=== PATIENT | male | born 1940 | race Caucasian/White ===

== ENCOUNTER 2018-02-27 00:20 | Inpatient (IN) ==
--- NOTE | 2018-02-27 03:28 | Internal Med History&Physical ---
Date of Encounter: 02/27/18 Time of Encounter: 03:26 Internal Medicine - H&P: HPI Admitted From: Hospital to Hospital Transfer History of present illness: Mr. Jerome is a 77 year old male All Systems PM: A 10-system review of systems was performed and is negative for pertinent findings except as documented above in the HPI.
[2018-02-27] MEDS ORDERED: Albuterol 2.5 MG/3 ML NEBULIZER IH PRN (03:46)
[2018-02-27] MEDS ORDERED: Naloxone 0.4 MG/ML INJ IVP PRN (03:46)
[2018-02-27] MEDS ORDERED: Acetaminophen 325 MG TABLET PO PRN (03:46)
[2018-02-27] MEDS ORDERED: Vancomycin (wt based) 1,000 MG VIAL IVPB SCH (04:00)
[2018-02-27] MEDS: D5% in 0.45% NACL 1,000 ML IVC SCH ×2 (04:25→14:33)
--- NOTE | 2018-02-27 04:28 | Internal Med History&Physical ---
Date of Encounter: 02/27/18 Time of Encounter: 03:30 Internal Medicine - H&P: HPI Chief complaint: SOB; fevers; chills Admitted From: Hospital to Hospital Transfer Plans for Post Hospital Care: Home History of present illness: Mr. Jerome is a 77 year old male who presents in transfer from [facility] emergency department. He presented there earlier this evening with complaints of profound dyspnea, cough, fevers, chills, and night sweats. He was profoundly hypoxemic and in severe posterior distress there at the ER. He was placed on BiPAP and high flow oxygen. A transfer request was made to our hospital for ongoing care and management. Given his critical state , he was transferred directly to our ICU were he presented and I saw him shortly upon arrival. Upon my assessment of the patient, he is on BiPAP and having some signs of respiratory distress during assessment. He states he feels much better on the BiPAP and that he was struggling to breathe prior to BiPAP placement. He wears anywhere between 5-10 L O2 nasal cannula at home chronically. He suffers from severe COPD and recently saw Dr. Morataya in consultation in the office. He states that over the last couple days he's had significant cough, wheeze, shortness of breath, subjective fevers, chills, and night sweats. He states he was drenching himself in sweat after breaking his fever. He denies any vomiting or diarrhea. Appetite has been diminished. He has had significantly increased work of breathing last 24 hours. I discussed CODE STATUS with patient. Other than stating "I do not want to be a vegetable", he wants to be full code. He requests chest compressions or defibrillation and intubation if necessary. I informed him that we will try to avoid intubation for fear that that if he requires intubation, I suspect he will not be able to be successfully extubated. We will continue with aggressive treatment measures, including BiPAP, in hopes of avoiding intubation. Patient voiced understanding and agreement with the plan. Past Med Surg Social Fam HX - Past Medical History Attestation: Yes The following information was validated with the patient. Source: patient, old records reviewed Medical history: COPD, hypertension Additional medical history: BPH, prostate cancer Psychiatric history: no psych history - Past Surgical History Surgical History: cholecystectomy Additional surgical history: neck/back surgery. Nerve in head surgery - Social History Smoking Status: Former smoker Drug use: none Current living situation: Home - Independent Activity Level: Independent ambulation Recent Out of Country Travel Within the Last 8 Weeks: No - Family History Mother History Unknown: Yes Living Status: Father History Unknown: Yes Living Status: Internal Medicine - H&P: Meds 3 Allergy/AdvReac Type Severity Reaction Status Date / Time No Known Allergies Allergy Verified 02/27/18 03:51 - Constitutional Constitutional: chills, fever(s), night sweats, weakness - EENT Eyes: no blurry vision, no change in vision Ears: no ear pain, no tinnitus Nose, mouth and throat: no nasal congestion, no sinus pressure, no sore throat - Cardiovascular Cardiovascular ROS IM: diaphoresis, dyspnea, dyspnea on exertion, no chest pain , no syncope - Respiratory Respiratory: cough, dyspnea, dyspnea on exertion, wheezing, chest congestion, change in phlegm color, no hemoptysis, no excessive phlegm production, no pain with cough - Gastrointestinal Gastrointestinal: no abdominal pain, no diarrhea, no hematemesis, no melena, no nausea, no vomiting - Genitourinary Genitourinary ROS male: no dysuria, no flank pain, no hematuria - Musculoskeletal Musculoskeletal ROS IM: no arthralgias, no back pain - Integumentary Integumentary IM: no rash, no jaundice - Neurological Neurological ROS: weakness, no dizziness, no focal weakness, no frequent falls, no headache(s) - Psychiatric Psychiatric: no anxiety, no depression - Endocrine Endocrine IM: no polydipsia, no polyuria - Allergic/Immunologic Allergic/Immunologic: wheezing, no GI upset with certain foods - Constitutional Vitals: Temp Pulse Resp BP Pulse Ox 99.7 F H 101 24 132/96 92 02/27/18 03:26 02/27/18 04:00 02/27/18 04:00 02/27/18 04:00 02/27/18 04:00 General appearance: Present: cooperative, A&O X 3, pleasant, severe distress ( respiratory), answers questions appropriately - Head Head exam: Present: atraumatic, normal inspection - Eye Eye exam: Present: EOMI, normal appearance, PERRL. Absent: scleral icterus Pupils: Present: normal accommodation - ENT ENT exam: Present: mucous membranes dry Additional comments: on BiPap - Neck Neck exam general surgery: Present: full ROM, supple. Absent: lymphadenopathy, tenderness, nuchal rigidity, thyromegaly - Respiratory Respiratory exam: Present: accessory muscle use, decreased breath sounds, prolonged expiratory phase, respiratory distress, rhonchi, wheezes. Absent: chest wall tenderness, rales Additional comments: very distant breath sounds with markedly prolonged expiratory phase - Cardiovascular Cardiovascular exam: Present: distant heart sounds, +S1, +S2, tachycardia. Absent: diastolic murmur, JVD, systolic murmur - GI/Abdominal GI/Abdominal exam: Present: normal bowel sounds, soft. Absent: guarding, hepatomegaly, rebound, splenomegaly, tenderness - Extremities Exam Extremities exam: Present: full ROM, normal capillary refill, pedal edema (1-2 + ), warm, radial pulses palpable and symmetrical. Absent: calf tenderness, joint swelling, tenderness - Back Exam Back exam: Present: normal inspection. Absent: CVA tenderness (L), CVA tenderness (R) - Neurological Exam Neurological exam: Present: alert, oriented X3, no focal deficits, strengths equal and symetr throughout - Psychiatric Psychiatric exam: Present: normal affect, normal mood - Skin Skin exam: Present: dry, warm Internal Med - H&P Results - Labs Labs: I reviewed the labs from. Include the following: Sodium 150 Potassium 4.5 Chloride 108 Carbon dioxide 29 Glucose 10 a BUN 15 Creatinine 1.04 WBC 14.9 Hemoglobin 18.5 Hematocrit 56.2 Platelet count 160 PTT 32 PT 12.9 INR 1.2 D-dimer 157 Troponin less than 0.03 ABG: PH 7.46/PCO2 36.9/PO2 57/bicarbonate 25.9/O2 sats 92% on 40% FiO2 BiPAP - EKG Data -: EKG Interpreted by Myself EKG shows normal: sinus rhythm Rate: tachycardia - EKG Data Prior EKG available for review: no - Assessment and plan (1) Acute hypoxemic respiratory failure Current Visit: Yes Status: Acute Assessment and plan: 1. Patient tolerating BiPap currently. 2. Continue BiPap, oxygen, aerosols, and steroids. 3. Consult Pulmonology for ICU management. 4. Patient remains FULL CODE, but consideration needs to be made for palliative care consultation. 5. Will order ABG now and follow clinically. May need to trend ABG's along with clinical assessment. 6. I can not find any imaging report or images from [facility]. Will order CXR. May need CT chest imaging. Total of 55 minute critical care time thus far with patient. (2) Sepsis Current Visit: Yes Status: Acute Assessment and plan: 1. BP preserved. 2. Suspect lung source as etiology. 3. Will order blood cultures. 4. Patient received a dose of Levaquin at [facility]. 5. Will continue Levaquin and add Vancomycin to antibiotic regimen. 6. Will place on IVF and trend Lactate levels. 7. Monitor hemodynamic status and address accordingly. Qualifiers: Sepsis type: sepsis due to unspecified organism Qualified Code(s): A41.9 - Sepsis, unspecified organism (3) End stage COPD Current Visit: Yes Status: Chronic Assessment and plan: 1. As noted above and Dr. Mukherjee's office note, patient may benefit from Hospice care. 2. ICU care as above. 3. Consider Palliative care consult, especially if he declines and/or fails to improve. (4) DVT prophylaxis Current Visit: Yes Status: Acute Assessment and plan: 1. Heparin SQ.
[2018-02-27 04:31] LABS: ABG Base Excess 3 mEq/L (-2 to 3); ABG HCO3 27 mEq/L (21-27); ABG Oxygen Saturation 95 % (95-98); ABG PCO2 39 mmHg (35-45); ABG PH 7.46 pH Units (7.32-7.45); ABG PO2 72 mmHg (85-104); ABG TCO2 28 mEq/L (20-26); Blood Gas Modality NIV; Blood Gas PEEP 9 cm H2O; Blood Gas Pressure Support 18 cm H2O; Blood Gas Respiration Rate 26; Blood Gas VT 1102 cc
[2018-02-27] MEDS: Ipratropium/Albuterol Neb 3 ML IH SCH ×6 (04:44→23:55)
[2018-02-27 04:54] LABS: Basophils % 0.1 %; Hematocrit 50.9 % (37.5-50.1); Hemoglobin 17.2 g/dL (12.9-16.9); Immature Granulocytes % 0.6 % (0-4); Lymphocytes # 0.6 K/mcL (0.6-4.6); Lymphocytes % 3.3 %; Mean Corpuscular HGB Conc 33.8 g/dL (31.6-35.5); Mean Corpuscular Hemoglobin 31.2 pg (28.0-33.3); Mean Corpuscular Volume 92.4 fL (83.0-100.0); Mean Platelet Volume 11.8 fL (9.4-12.4); Monocytes # 0.2 K/mcL (0.0-1.3); Monocytes % 1.2 %; Neutrophils # 16.2 K/mcL (1.6-8.9); Platelet Count 146 K/mcL (140-400); Red Blood Count 5.51 M/mcL (4.19-5.50); Red Cell Distribution Width 13.6 % (11.5-14.5); Segmented Neutrophils % 94.8 %
[2018-02-27 05:02] LABS: INR 1.2; Prothrombin Time 13.5 Seconds (9.4-12.1)
[2018-02-27 05:04] LABS: Activated Partial Thrombo Time 30.8 Seconds (26.0-36.0)
[2018-02-27 05:11] LABS: Alanine Aminotransferase 9 Units/L (7-52); Albumin 3.8 g/dL (3.5-5.7); Albumin/Globulin Ratio 1.5 (1.1-2.2); Alkaline Phosphatase 61 Units/L (34-104); Aspartate Amino Transferase 20 Units/L (13-39); BUN/Creatinine Ratio 15 (6-26); Bilirubin,Direct 0.3 mg/dL (0.0-0.2); Bilirubin,Indirect 0.8 mg/dL (0.0-1.2); Bilirubin,Total 1.1 mg/dL (0.3-1.0); Blood Urea Nitrogen 15 mg/dL (8-23); Carbon Dioxide 24 mEq/L (23-29); Chloride 108 mEq/L (98-107); Globulin 2.5 g/dL (2.4-3.5); Glucose 147 mg/dL (70-105); Osmolality,Calculated 294 (280-300); Potassium 4.4 mEq/L (3.5-5.1); Sodium 140 mEq/L (136-145); Total Protein 6.3 g/dL (6.4-8.9); eGFR For African Americans > 60 (> 60); eGFR For Non-African Americans > 60 (> 60)
[2018-02-27] MEDS ORDERED: methylPREDNISolone 125 MG/2 ML VIAL IVP SCH (06:00)
--- NOTE | 2018-02-27 07:06 | Pulmonology Consult Note ---
Date of Encounter: 02/27/18 Time of Encounter: 06:57 Assessment and Plan (1) Acute and chronic respiratory failure with hypoxia Current Visit: Yes Status: Acute The patient presented with life-threatening hypoxemia requiring noninvasive ventilation during maintain oxygen saturation greater than 88%. He has a high risk for further decline requiring endotracheal intubation. At this time he appears to have stabilized on noninvasive ventilation which we will continue to course of the morning. The etiology of his respiratory failure is multifactorial in 2 including what appears to be acute pneumonia complicated by hydrostatic pulmonary edema and severe COPD with expected exacerbation along with underlying pulmonary fibrosis (2) Pulmonary hypertension Current Visit: Yes Status: Acute I suspect a component of cor pulmonale given bilateral lower extremity edema. Echocardiogram today pending final results but I will was able to evaluate images while the tech was completing her study. Was notable for a dilated but functional RV. I suspect that this is group 3 pulmonary hypertension secondary to chronic hypoxemia from his underlying lung illnesses. We will trial gentle diuresis over the course the day and as a part of the stop IV fluids pending formal echocardiogram interpretation (3) Pneumonia Current Visit: Yes Status: Acute I reviewed his chest x-ray which is equivocal for pneumonia but clinically the picture is concerning for acute pneumonia. 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 (5) Leukocytosis Current Visit: Yes Status: Acute Suspect is secondary to pneumonia however cannot exclude other sources of infection including urinary tract infection blood sputum and urine cultures will be analyzed for infection. Although this may reflect sepsis is unclear at this time and I suspect that more aggressive fluid resuscitation in the absence of an elevated lactate is likely to be deleterious and I will stop any further IV crystalloid infusion. Qualifiers: Leukocytosis type: unspecified Qualified Code(s): D72.829 - Elevated white blood cell count, unspecified (6) COPD with acute exacerbation Current Visit: Yes Status: Acute We have scheduled IV steroids and will schedule frequent bronchodilators. He remains on BiPAP (7) Goals of care, counseling/discussion Current Visit: Yes Status: Acute Unfortunately the patient has underlying terminal respiratory failure from multiple lung diseases including pulmonary fibrosis and advanced COPD. In the clinic setting I had an extensive conversation with him and his daughter approximately 2 months ago in which case stated were both inconclusive and there assessment that the patient did not want to undergo endotracheal intubation or CPR. His primary goal is "not to live like a vegetable" and further clarification of this he explained that he did not want to be kept alive on machines without any quality of life. I explained to him that I absolutely is not that CPR in this situation would absolutely put him into such a situation and he was very clear that he did not want this. Further clarification of his goals of care as far as endotracheal intubation today also reflect of the nature that he did not feel that there be any significant benefit from him being put on a ventilator with regards to his overall goals which are to return home with some quality of life. I explained that the pattern of intubation was his lung disease generally results in at the very best chronic critical illness with likely difficulty to failure of liberation possible need for tracheostomy placement. None of these options were acceptable for the patient. I will further discuss this with the family when they arrive I did try to call his today with one number that was left listed however I was unable to reach anybody. I also feel that he would benefit from formal palliative care consultation for further elaboration of goals of care which the discussion been started the outpatient setting and should continue here. My personal recommendation is that the patient should seek hospice care as I suspect his six-month mortality is very high given his complex medical comorbid conditions and also his underlying performance status which at home at this time is generally just sitting on the couch and ambulating to the bathroom he has a very significant ox baseline oxygen requirement of between 6-10 L 6 L with rest and up to 10 L and likely greater with exertion. I have changed his CODE STATUS reflect this conversation the patient had in the room today DNAR/DNI which is also the same conclusion that was drawn from our clinic visit a few months ago History of Present Illness Consult date: 02/27/18 Requesting physician: Eder Pal Reason for consult: hypoxemia Chief complaint: Difficulty in breathing History of present illness: Mr. 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 Unfortunately suffers from end-stage respiratory failure secondary to COPD and suspected the concomitant pulmonary fibrosis. He is a former smoker of many years starting in his teenage years but he quit in his 60s. He presented to [facility] yesterday with increased work of breathing also complaining of cough fever chills and night sweats. He was noted to be severely hypoxemic and in their emergency department he was placed on BiPAP with high flow oxygen bleed transferred to [facility] for further evaluation. He was kept on BiPAP overnight treated for pneumonia. Pulmonary was consulted for further evaluation of the patient. Today he states that his feels generally more comfortable than on admission. He reinforces the notion that he was having cough fever and chills and this and increased difficulty in breathing and that is what brought him to the hospital. Past Med Surg Social Fam HX - Past Medical History Medical history: COPD, hypertension Additional medical history: BPH, prostate cancer Psychiatric history: no psych history - Past Surgical History Surgical History: cholecystectomy Additional surgical history: neck/back surgery. Nerve in head surgery - Social History Smoking Status: Former smoker Drug use: none - Family History Mother History Unknown: Yes Living Status: Father History Unknown: Yes Living Status: Medications and Allergies 3 Allergy/AdvReac Type Severity Reaction Status Date / Time No Known Allergies Allergy Verified 02/27/18 03:51 All Systems: The remainder of the systems were reviewed and are negative Physical Examination Vital Signs: Vital Signs, Last 4 Hours Temp Pulse Resp BP Pulse Ox 02/27/18 06:00 80 14 160/104 93 02/27/18 05:00 82 20 151/97 93 02/27/18 04:47 17 95 02/27/18 04:00 101 24 132/96 92 02/27/18 03:56 93 02/27/18 03:28 26 95 02/27/18 03:26 99.7 F H 103 22 95 General appearance: no acute distress Eyes: nonicteric ENT: other (BiPAP noted) Neck: supple Effort: mildly labored Auscultation: bilateral: diminished breath sounds, rales Cardiovascular: regular rate and rhythm Gastrointestinal: soft, non-tender, non-distended Integumentary: normal Extremities: no cyanosis, pink and warm, pulses normal, edema (Bilateral 2+ pitting edema to the midshin) Musculoskeletal: no deformities normal mental status, non-focal exam, pupils equal and round mood appropriate Results - Laboratory Findings CBC and BMP: 02/27/18 04:35 02/27/18 04:35 ABG ABG pH 7.46 pH Units (7.32-7.45) H 02/27/18 04:26 ABG pCO2 39 mmHg (35-45) 02/27/18 04:26 ABG pO2 72 mmHg (85-104) L 02/27/18 04:26 ABG O2 Saturation 95 % (95-98) 02/27/18 04:26 PT/INR, D-dimer PT 13.5 Seconds (9.4-12.1) H 02/27/18 04:35 Abnormal lab findings: Abnormal lab results WBC 17.1 K/mcL (4.3-11.1) H 02/27/18 04:35 RBC 5.51 M/mcL (4.19-5.50) H 02/27/18 04:35 Hgb 17.2 g/dL (12.9-16.9) H 02/27/18 04:35 Hct 50.9 % (37.5-50.1) H 02/27/18 04:35 Neutrophils # 16.2 K/mcL (1.6-8.9) H 02/27/18 04:35 PT 13.5 Seconds (9.4-12.1) H 02/27/18 04:35 ABG pH 7.46 pH Units (7.32-7.45) H 02/27/18 04:26 ABG pO2 72 mmHg (85-104) L 02/27/18 04:26 ABG Total CO2 28 mEq/L (20-26) H 02/27/18 04:26 Chloride 108 mEq/L (98-107) H 02/27/18 04:35 Glucose 147 mg/dL (70-105) H 02/27/18 04:35 POC Glucose 116 mg/dL (70-99) H 02/27/18 03:19 Total Bilirubin 1.1 mg/dL (0.3-1.0) H 02/27/18 04:35 Direct Bilirubin 0.3 mg/dL (0.0-0.2) H 02/27/18 04:35 Serum Total Protein 6.3 g/dL (6.4-8.9) L 02/27/18 04:35 - Diagnostic Findings Chest x-ray: report reviewed, image reviewed - Clinical Findings Intake & Output: Intake & Output 02/26/18 02/26/18 02/27/18 15:59 23:59 07:59 Output Total 400 / 400 Balance -400 / -400 Weight 98.2 kg Consult Discharge Plan - Plan Referrals: NONE,PCP [Primary Care Provider] -
[2018-02-27] MEDS ORDERED: Furosemide 40 MG/4 ML VIAL IVP ONE (07:41)
[2018-02-27] MEDS ORDERED: Aminoglycoside Consult 1 EACH MC ONE (07:56)
[2018-02-27] MEDS: *HR* Heparin 5,000 UNIT/ML VIAL SQ SCH ×3 (08:05→22:52)
[2018-02-27] MEDS: methylPREDNISolone 125 MG/2 ML VIAL IVP SCH ×3 (09:07→22:53)
[2018-02-27 09:23] LABS: Bilirubin,Urine Negative (Negative); Blood,Urine Negative (Negative); Clarity,Urine Clear (Clear); Color,Urine Yellow (Yellow); Glucose,Urine (UA) Normal (Normal); Ketones,Urine Negative (Negative); Leukocyte Esterase,Urine Negative (Negative); Nitrite,Urine Negative (Negative); PH,Urine 7.5 pH Units (5.0-8.0); Protein,Urine Negative (Neg-Trace); Specific Gravity,Urine 1.008 (1.010-1.025); Urobilinogen,Urine Normal (Normal)
--- NOTE | 2018-02-27 12:06 | Palliative - Consult Note ---
Date of Encounter: 02/27/18 Time of Encounter: 11:30 - Assessment and Plan (1) Dyspnea Current Visit: Yes Status: Acute Assessment and plan: Patient reports increased dyspnea with movement. Wears 5-10L NC at home. Currently managed on BiPAP. Patient reinforced wishes to not be intubated. Qualifiers: Dyspnea type: shortness of breath Qualified Code(s): R06.02 - Shortness of breath; R06.00 - Dyspnea, unspecified; R06.01 - Orthopnea (2) Weakness Current Visit: Yes Status: Acute Assessment and plan: Patient reports increased weakness over the last several days. Will order PT/OT once off bedrest status. (3) Acute hypoxemic respiratory failure Current Visit: Yes Status: Acute Assessment and plan: Patient currently on BiPAP managed. (4) End stage COPD Current Visit: Yes Status: Chronic Assessment and plan: Patient suffers form End Stage COPD. Oxygen Saturation 96% on BiPAP. Continue recommendations per Pulmonary/ICU team. Continue Oxygen therapy and Duonebs. (5) Goals of care, counseling/discussion Current Visit: Yes Status: Acute Assessment and plan: Spoke with patient at length regarding goals of care. Patient expressed desire to continue current treatment plan throughout weekend; should patient not be able to be off BiPAP he would consider Hospice Care. Reinforced CODE STATUS of DNR CCA/DNI. Patient would like to speak with his children about plans at discharge as he currently resides at home alone. Expressed Financial aspect would be difficult. Spoke with patient's nurse, was informed patient's son and daughter on way to visit. Will have meeting with patient's children at time of arrival, requested RN notify this science writer on arrival. Patient is considering whether to: 1. go home with hospice with family, 2. ECF for rehab at discharge, or 3. Return home independently. Will follow up on friday, pending result of family meeting. 1500: Notified by Dr. Morataya regarding goals of care after family meeting. Conducted family meeting with patient's daughter Dain and son Norm. Patient and family have agreed to continue to consider hospice over the weekend and make potential discharge plans on Friday. (6) Headache Current Visit: Yes Status: Acute Assessment and plan: Patient reported headache, 2/10 on pain scale, described as ache. Patient is ordered Tylenol PRN, patient requested to have this. Notified Primary RN. Qualifiers: Headache type: unspecified Headache chronicity pattern: unspecified pattern Intractability: not intractable Qualified Code(s): R51 - Headache Palliative-CN HPI - Data of Consult Patient: new to practice Consult date: 02/27/18 Requesting Physician: Earl Michel Primary Care Provider: PCP NONE - Consult Narrative Palliative Care/Comfort Measures: Palliative care Reason for consult: Goals of care History of present illness: Mr. Jerome is a 77 year old male arrived to [facility] Emergency department 02/26/18 with profound dyspnea, cough, fevers, chillls, and night sweats. Patient was placed on BiPAP and transferred to [place] ICU. Initial Chest x-ray showed: COPD, Cardiomegaly, and Interstitial opacities. WBC 17.1. PMH: COPD, HTN, BPH, and Prostate cancer. Patient is a known patient of Dr. Mukherjee. Upon arrival, patient requested CPR and intubation be performed in necessary; however, since returned to DNR CCA/DNI status. Patient requiring BiPAP current for ventilation support. Palliative care consulted regarding goals of care. Patient resting quietly with eyes closed upon assessment. No complaints of pain , dyspnea, anxiety, nausea, or vomiting during assessment. Patient does report he has had increased weakness for the last couple of days. Patient is alert and oriented times three and able to follow commands. Patient lives alone with his cat; son lives across [facility] and daughter lives 30-40 miles away. Patient reports daughter takes care of his financial aspects as he has a difficult time remembering to do all the daily tasks. Also, reports neighbor cooks his meals. Patient has been for a couple of years. Spoke with Primary RN and informed Dain ([phone], daughter) and Norm (son) both on way to hospital for visit. Will conduct family meeting upon arrival. CC: Earl Michel Past Med Surg Social Fam HX - Past Medical History Medical history: COPD, hypertension Additional medical history: BPH, prostate cancer Psychiatric history: no psych history - Past Surgical History Surgical History: cholecystectomy Additional surgical history: neck/back surgery. Nerve in head surgery - Social History Smoking Status: Former smoker Drug use: none - Family History Mother History Unknown: Yes Living Status: Father History Unknown: Yes Living Status: Medications and Allergies Alfuzosin HCl [Uroxatral] 10 mg PO DAILY 02/27/18 [History] Docusate Sodium [Dok] 100 mg PO DAILY 02/27/18 [History] Doxazosin Mesylate [Cardura] 8 mg PO DAILY 02/27/18 [History] Fluticasone/Salmeterol [Advair 500-50 Diskus] 1 puff IH BID 02/27/18 [History] Ipratropium/Albuterol Neb [Duoneb] 3 ml IH Q6HR PRN 02/27/18 [History] Montelukast [Singulair] 10 mg PO DAILY 02/27/18 [History] Multivit-Min/FA/Lycopen/Lutein [A Thru Z Select Men 50+ Tablet] 1 tab PO DAILY 02/27/18 [History] Oxybutynin Chloride [Ditropan Xl] 5 mg PO DAILY 02/27/18 [History] Oxybutynin [Ditropan] 5 mg PO BID 02/27/18 [History] Potassium Gluconate [Potassium] 99 mg PO DAILY 02/27/18 [History] Sertraline [Zoloft] 100 mg PO DAILY 02/27/18 [History] 3 Allergy/AdvReac Type Severity Reaction Status Date / Time No Known Allergies Allergy Verified 02/27/18 03:51 - Constitutional Constitutional ROS PAL: decreased appetite, fatigue, fever(s) - Cardiovascular Cardiovascular ROS: dyspnea on exertion, pedal edema - Respiratory Respiratory: cough, dyspnea - Gastrointestinal Gastrointestinal: no abdominal pain, no change in bowel habits, no change in stool character, no constipation - Genitourinary Genitourinary ROS male: no difficulty urinating - Neurological Neurological ROS: weakness - Psychiatric Psychiatric general PM: no anxiety Palliative Care-Exam - Constitutional Vitals: Temp Pulse Resp BP Pulse Ox 97.9 F 84 14 144/97 93 02/27/18 11:43 02/27/18 10:00 02/27/18 10:00 02/27/18 10:00 02/27/18 10:00 General appearance: Present: cooperative, no acute distress - Head Head Exam: Present: atraumatic, normal inspection - Eye Eye exam: Present: EOMI, normal appearance, PERRL. Absent: nystagmus, periorbital swelling, periorbital tenderness - ENT ENT exam: Present: mucous membranes dry, normal external ear exam - Expanded ENT Exam Mouth Exam: Present: dry mucosa. Absent: drooling - Neck Neck exam: Present: full ROM, normal inspection - Respiratory Respiratory exam: Present: decreased breath sounds, rhonchi. Absent: accessory muscle use - Cardiovascular Cardiovascular exam: Present: +S1, +S2 - Expanded Cardiovascular Exam Peripheral pulses: 1+: Posterior Tibialis (L), Posterior Tibialis (R), Dorsalis Pedis (L) PM, Dorsalis Pedis (R) PM, 2+: Radial (L), Radial (R) - GI/Abdominal Exam GI/Abdominal exam: Present: normal bowel sounds, soft. Absent: tenderness - Rectal Rectal Exam: Present: deferred - Extremities Exam Extremities exam: Present: full ROM, pedal edema - Neurological Exam Neurological exam: Present: alert, oriented X3, strengths equal and symetr throughout. Absent: altered - Expanded Neurological Exam Patient oriented to: Present: person, place, time Coma Scale Eye Opening: Spontaneous Coma Scale Motor Response: Obeys Commands Coma Scale Verbal Response: Oriented Coma Scale Total: 15 - Psychiatric Psychiatric exam: Present: normal affect, normal mood (tearful when discussing goals of care.). Absent: anxious Internal Medicine - CN: Reslt - Labs CBC & Chem 7: 02/27/18 04:35 02/27/18 04:35 Labs: Short CBC 02/27/18 Range/Units 04:35 WBC 17.1 H (4.3-11.1) K/mcL Hgb 17.2 H (12.9-16.9) g/dL Hct 50.9 H (37.5-50.1) % Plt Count 146 (140-400) K/mcL Neutrophils # 16.2 H (1.6-8.9) K/mcL BMP 02/27/18 04:35 Sodium 140 Potassium 4.4 Chloride 108 H Carbon Dioxide 24 BUN 15 Creatinine 1.00 Glucose 147 H Calcium 9.0 Cardiac Enzymes 02/27/18 Range/Units 07:53 Troponin I < 0.03 (< 0.04) ng/mL Liver Function 02/27/18 Range/Units 04:35 Total Bilirubin 1.1 H (0.3-1.0) mg/dL Direct Bilirubin 0.3 H (0.0-0.2) mg/dL AST 20 (13-39) Units/L ALT 9 (7-52) Units/L Alkaline Phosphatase 61 (34-104) Units/L Albumin 3.8 (3.5-5.7) g/dL Urine 02/27/18 Range/Units 09:13 Urine Color Yellow (Yellow) Urine Clarity Clear (Clear) Urine pH 7.5 (5.0-8.0) pH Units Ur Specific [place] 1.008 L (1.010-1.025) Urine Protein Negative (Neg-Trace) mg/dL Urine Glucose (UA) Normal (Normal) mg/dL - ABG Interpretation ABG results: ABG ABG pH 7.46 pH Units (7.32-7.45) H 02/27/18 04:26 ABG pCO2 39 mmHg (35-45) 02/27/18 04:26 ABG pO2 72 mmHg (85-104) L 02/27/18 04:26 ABG O2 Saturation 95 % (95-98) 02/27/18 04:26 PT/INR, D-dimer PT 13.5 Seconds (9.4-12.1) H 02/27/18 04:35 - Impressions Impressions Echocardiogram 02/27/18 03:55 Impressions: LVEF 60-65%. Normal LV chamber size, wall thickness and function. Mild left ventricular diastolic dysfunction. Normal right ventricular structure and function. No significant valvular dysfunction. Severe pulmonary hypertension. Estimated RVSP is >70 mmHg. Left Ventricular Wall Motion: Rest Echo Findings All wall segments showed normal motion. Findings: Study Quality * Technically adequate exam. ECG Findings * Normal sinus rhythm. Left Ventricle * LVEF 60-65%. * Normal LV chamber size, wall thickness and function. * Mild left ventricular diastolic dysfunction. Right Ventricle * Normal right ventricular structure and function. Left Atrium * Mildly dilated left atrium. Right Atrium * Mildly dilated right atrium. Aortic Valve * Aortic valve not well visualized. * No aortic regurgitation. * No aortic stenosis. Mitral Valve * Normal mitral valve structure and function. * No mitral regurgitation. * No mitral stenosis. Tricuspid Valve * Normal tricuspid valve structure and function. * Trace tricuspid regurgitation. * Severe pulmonary hypertension. * Estimated RVSP is >70 mmHg. * Estimated RA pressure is presumed to be at least 5 mmHg. Pulmonic Valve * Pulmonic valve is not well visualized. Aorta * Normally sized aortic root. Pericardium * The pericardium appears normal. IVC * The IVC is not well evaluated. Pulmonary Artery * Pulmonary artery not well visualized. Chest X-Ray 02/27/18 03:56 IMPRESSION: 1. COPD. 2. Cardiomegaly. 3. Interstitial opacities. These may represent chronic inflammation versus edema. Old films would be helpful to evaluate for interval change. D/ / Eric Gu MD / Eric Gu MD Interpreting Provider: Eric Gu MD Consult Discharge Plan - Plan Referrals: NONE,PCP [Primary Care Provider] - Palliative Quality Palliative Quality: Screen for Code Status: Yes, Screen for Goals of Care: Yes, Screen for Pain: Yes, If Pain Regimen Started, Initiate Bowel Regimen: NA, Screen for Nausea/Vomitting: Yes Code Status: 02/27/18 03:46 Resuscitation Status: Active [RES] Routine Comment: Resuscitation Status: Full Code 02/27/18 07:45 CODE [Resuscitation Status: Active] [RES] Routine Comment: Resuscitation Status: [id number]
[2018-02-28] MEDS: Ipratropium/Albuterol Neb 3 ML IH SCH ×5 (03:46→20:15)
[2018-02-28 07:20] LABS: Basophils % 0.1 %; Hematocrit 47.1 % (37.5-50.1); Hemoglobin 15.8 g/dL (12.9-16.9); Immature Granulocytes % 0.6 % (0-4); Lymphocytes # 0.7 K/mcL (0.6-4.6); Lymphocytes % 4.7 %; Mean Corpuscular HGB Conc 33.5 g/dL (31.6-35.5); Mean Corpuscular Hemoglobin 30.9 pg (28.0-33.3); Mean Corpuscular Volume 92.2 fL (83.0-100.0); Mean Platelet Volume 11.5 fL (9.4-12.4); Monocytes # 0.6 K/mcL (0.0-1.3); Monocytes % 4.1 %; Neutrophils # 12.4 K/mcL (1.6-8.9); Platelet Count 153 K/mcL (140-400); Red Blood Count 5.11 M/mcL (4.19-5.50); Red Cell Distribution Width 13.5 % (11.5-14.5); Segmented Neutrophils % 90.5 %
[2018-02-28 07:35] LABS: BUN/Creatinine Ratio 22 (6-26); Blood Urea Nitrogen 22 mg/dL (8-23); Calcium 8.6 mg/dL (8.6-10.3); Carbon Dioxide 25 mEq/L (23-29); Chloride 107 mEq/L (98-107); Glucose 160 mg/dL (70-105); Osmolality,Calculated 299 (280-300); Potassium 4.3 mEq/L (3.5-5.1); Sodium 141 mEq/L (136-145); eGFR For African Americans > 60 (> 60); eGFR For Non-African Americans > 60 (> 60)
--- NOTE | 2018-02-28 08:01 | Pulmonology Progress Note ---
Date of Encounter: 02/28/18 Time of Encounter: 08:01 Assessment and Plan (1) Acute and chronic respiratory failure with hypoxia Current Visit: Yes Status: Acute This is secondary to acutely pneumonia complicated by hydrostatic pulmonary edema he is improving and back to baseline oxygen requirements Continue supplemental oxygen keep saturation greater than 88% at all times (2) Pulmonary hypertension Current Visit: Yes Status: Acute This is a combination of primarily WHO group 3 disease secondary to chronic hypoxemia complicated by mild diastolic dysfunction. Clinically still appears mildly volume overloaded we will continue Lasix today he should be started on a home-going Lasix regimen of at least 20 mg by mouth daily (3) Pneumonia Current Visit: Yes Status: Acute De-escalate antibiotics to respiratory fluoroquinolone to complete 7 day course Cultures thus far negative Qualifiers: Lung location: unspecified part of lung Qualified Code(s): J18.9 - Pneumonia, unspecified organism (4) Pulmonary fibrosis Current Visit: Yes Status: Acute He has combined pulmonary fibrosis and emphysema (5) Leukocytosis Current Visit: Yes Status: Acute likely secondary to pneumonia and improving Qualifiers: Leukocytosis type: unspecified Qualified Code(s): D72.829 - Elevated white blood cell count, unspecified (6) COPD with acute exacerbation Current Visit: Yes Status: Acute Transition to oral prednisone 40mg to complete a two-week taper Continue bronchodilators (7) Goals of care, counseling/discussion Current Visit: Yes Status: Acute The patient has terminal respiratory failure. I had a long conversation with the patient his daughter and son yesterday in the ICU it was clear that he did not want endotracheal intubation or CPR Further decline. This is also reinforced in the clinic in visit that I had with the patient proximally 2 months ago prior to admission. Also discussed about the possibility of hospice which he and his family continue to talk about. This is reasonable from a pulmonary standpoint I appreciate the palliative care service evaluating the patient and the recommendations Otherwise the patient is stable for transfer out of the ICU to medical telemetry for ongoing care I be happy to follow-up with the patient the outpatient setting in pulmonary clinic in [place] Please call with any questions Subjective Principal diagnosis: Pneumonia Interval history: Patient did very well overnight. His been weaned off BiPAP and is tolerating his baseline home oxygen requirement which is about 10 L. Denies any complaints today says he is ready to go home Objective PUL Vital signs: Last Vital Signs Temp 98.1 F 06/16/18 03:00 Pulse 80 02/28/18 07:00 Resp 22 02/28/18 07:00 BP 123/74 02/28/18 07:00 Pulse Ox 92 02/28/18 07:00 General appearance: no acute distress Eyes: nonicteric ENT: oropharynx moist Effort: normal Auscultation: bilateral: diminished breath sounds, rales Cardiovascular: regular rate and rhythm Gastrointestinal: normoactive bowel sounds, soft, non-tender Extremities: no cyanosis, no edema, no clubbing Musculoskeletal: no deformities normal mental status, non-focal exam mood appropriate Results - Laboratory Findings CBC and BMP: 02/28/18 07:03 02/28/18 07:03 ABG ABG pH 7.46 pH Units (7.32-7.45) H 02/27/18 04:26 ABG pCO2 39 mmHg (35-45) 02/27/18 04:26 ABG pO2 72 mmHg (85-104) L 02/27/18 04:26 ABG O2 Saturation 95 % (95-98) 02/27/18 04:26 PT/INR, D-dimer PT 13.5 Seconds (9.4-12.1) H 02/27/18 04:35 Abnormal lab findings: Abnormal lab results WBC 13.7 K/mcL (4.3-11.1) H 02/28/18 07:03 Neutrophils # 12.4 K/mcL (1.6-8.9) H 02/28/18 07:03 PT 13.5 Seconds (9.4-12.1) H 02/27/18 04:35 ABG pH 7.46 pH Units (7.32-7.45) H 02/27/18 04:26 ABG pO2 72 mmHg (85-104) L 02/27/18 04:26 ABG Total CO2 28 mEq/L (20-26) H 02/27/18 04:26 Glucose 160 mg/dL (70-105) H 02/28/18 07:03 POC Glucose 116 mg/dL (70-99) H 02/27/18 03:19 Total Bilirubin 1.1 mg/dL (0.3-1.0) H 02/27/18 04:35 Direct Bilirubin 0.3 mg/dL (0.0-0.2) H 02/27/18 04:35 B-Natriuretic Peptide 131 pg/mL (Less than 100) H 02/27/18 07:53 Serum Total Protein 6.3 g/dL (6.4-8.9) L 02/27/18 04:35 Ur Specific [place] 1.008 (1.010-1.025) L 02/27/18 09:13 - Microbiology Findings Microbiology Findings: Microbiology, Last 48 Hours 02/27/18 20:55 Legionella Antigen - Final Urine,Catheterized Streptococcus pneumoniae Antigen (M - Final 02/27/18 04:35 Blood Culture - Preliminary Peripheral Venipuncture Culture is incubating and being continuously monitored for growth. Final report to follow. 02/27/18 04:35 Blood Culture - Preliminary Peripheral Venipuncture Culture is incubating and being continuously monitored for growth. Final report to follow. - Diagnostic Findings Additional studies: Echocardiogram - Clinical Findings Intake & Output: Intake & Output 02/27/18 02/28/18 02/28/18 23:59 07:59 15:59 Intake Total 480 / 480 Output Total 500 / 500 250 / 250 Balance -20 / -20 -250 / -250 Weight 99 kg Consult Discharge Plan - Plan Referrals: NONE,PCP [Primary Care Provider] -
[2018-02-28] MEDS: methylPREDNISolone 125 MG/2 ML VIAL IVP SCH (08:07)
[2018-02-28] MEDS: *HR* Heparin 5,000 UNIT/ML VIAL SQ SCH ×2 (08:07→16:38)
[2018-02-28] MEDS ORDERED: Levofloxacin 750 MG/150 ML 750 MG/150 ML BAG IVPB SCH (09:00)
[2018-02-28] MEDS ORDERED: predniSONE 20 MG TABLET PO SCH (09:15)
[2018-02-28] MEDS ORDERED: Furosemide 20 MG/2 ML VIAL IVP SCH (09:15)
--- NOTE | 2018-02-28 09:45 | Event Note ---
Date of Encounter: 02/28/18 Time of Encounter: 09:44 Patient will be transferred out of the ICU and to tele unit. Spoke to hospitalist Dr. Santiago who agreed to accept the patient.
[2018-02-28] MEDS ORDERED: Naloxone 0.4 MG/ML INJ IVP PRN (13:49)
[2018-02-28] MEDS ORDERED: Acetaminophen 325 MG TABLET PO PRN (13:49)
[2018-02-28] MEDS ORDERED: Albuterol 2.5 MG/3 ML NEBULIZER IH PRN (13:49)
[2018-03-01] MEDS: Ipratropium/Albuterol Neb 3 ML IH SCH ×7 (00:05→23:35)
[2018-03-01] MEDS: *HR* Heparin 5,000 UNIT/ML VIAL SQ SCH ×4 (00:20→23:38)
[2018-03-01] MEDS: Levofloxacin 750 MG/150 ML 750 MG/150 ML BAG IVPB SCH (08:26)
[2018-03-01] MEDS: predniSONE 20 MG TABLET PO SCH (08:27)
[2018-03-01] MEDS: Furosemide 20 MG/2 ML VIAL IVP SCH (08:27)
[2018-03-01] MEDS ORDERED: predniSONE 20 MG TABLET PO SCH (09:00)
--- NOTE | 2018-03-01 10:36 | Internal Med Progress Note ---
<Alok Campbell - Last Filed: 03/01/18 10:34> Date of Encounter: 03/01/18 Time of Encounter: 10:34 - Assessment and plan (1) Acute and chronic respiratory failure with hypoxia Current Visit: Yes Status: Acute Assessment and plan: Secondary to COPD exacerbation setting of pulmonary fibrosis with possible pulmonary edema as well. Not requiring BiPAP any longer but is requiring oxygen via nasal cannula at 10 L. Continue supplementation to keep oxygen saturation greater than 80%. (2) Pulmonary fibrosis Current Visit: Yes Status: Acute Assessment and plan: Combined with emphysema. Discussed with patient this morning and he spoke with his family and will likely pursue hospice. Plan to set up home hospice tomorrow and possible discharge tomorrow. (3) Sepsis Current Visit: Yes Status: Resolved Assessment and plan: Secondary to pneumonia. Resolved at this time. Qualifiers: Sepsis type: sepsis due to unspecified organism Qualified Code(s): A41.9 - Sepsis, unspecified organism (4) Pneumonia Current Visit: Yes Status: Acute Assessment and plan: Cultures negative thus far. Continue Levaquin for a total of 7 days. Qualifiers: Lung location: unspecified part of lung Qualified Code(s): J18.9 - Pneumonia, unspecified organism (5) Pulmonary hypertension Current Visit: Yes Status: Acute Assessment and plan: Likely secondary to chronic lung disease. Continue Lasix and oxygen supplementation. (6) DVT prophylaxis Current Visit: Yes Status: Acute Assessment and plan: Heparin SQ. (7) COPD with acute exacerbation Current Visit: Yes Status: Acute Assessment and plan: Improving. Likely secondary to pneumonia and underlying pulmonary fibrosis. Continue prednisone and antibiotics as well as scheduled bronchodilators. - Time Spent With Patient Total time spent is greater than 50% in coordination of care (as documented) at patient's floor/unit and/or counseling patient: - Subjective Interval history: Patient seen and examined at bedside. Patient states that he feels pretty good today. Does report that he had shortness of breath with any activity. Otherwise he is tolerating nasal cannula well and has not required BiPAP. - Constitutional Vitals: Temp Pulse Resp BP Pulse Ox 98.0 F 88 18 152/89 92 03/01/18 07:09 03/01/18 07:09 03/01/18 07:09 03/01/18 07:09 03/01/18 07:09 General appearance: Present: cooperative, mild distress, A&O X 3, pleasant, answers questions appropriately - Respiratory Respiratory exam: Present: decreased breath sounds. Absent: wheezes Additional comments: Crackles bibasilar. - Cardiovascular Cardiovascular exam: Present: RRR. Absent: gallop, rubs, systolic murmur - GI/Abdominal GI/Abdominal exam: Present: normal bowel sounds, soft. Absent: distended, tenderness - Extremities Exam Extremities exam: Present: warm. Absent: pedal edema, tenderness Internal Medicine: Result - Labs CBC & Chem 7: 02/28/18 07:03 02/28/18 07:03 - ABG Interpretation ABG results: ABG ABG pH 7.46 pH Units (7.32-7.45) H 02/27/18 04:26 ABG pCO2 39 mmHg (35-45) 02/27/18 04:26 ABG pO2 72 mmHg (85-104) L 02/27/18 04:26 ABG O2 Saturation 95 % (95-98) 02/27/18 04:26 PT/INR, D-dimer PT 13.5 Seconds (9.4-12.1) H 02/27/18 04:35 Consult Discharge Plan - Plan Referrals: NONE,PCP [Primary Care Provider] - <Celestina Lo - Last Filed: 03/01/18 14:17> Date of Encounter: 03/01/18 - Assessment and plan (1) Sepsis Current Visit: Yes Status: Resolved Qualifiers: Sepsis type: sepsis due to unspecified organism Qualified Code(s): A41.9 - Sepsis, unspecified organism (2) DVT prophylaxis Current Visit: Yes Status: Acute (3) Acute and chronic respiratory failure with hypoxia Current Visit: Yes Status: Acute (4) Pulmonary hypertension Current Visit: Yes Status: Acute (5) Pneumonia Current Visit: Yes Status: Acute Qualifiers: Lung location: unspecified part of lung Qualified Code(s): J18.9 - Pneumonia, unspecified organism (6) Pulmonary fibrosis Current Visit: Yes Status: Acute (7) COPD with acute exacerbation Current Visit: Yes Status: Acute - Time Spent With Patient Total time spent is greater than 50% in coordination of care (as documented) at patient's floor/unit and/or counseling patient: - Constitutional Vitals: Temp Pulse Resp BP Pulse Ox 97.7 F 102 20 121/75 90 03/01/18 11:08 03/01/18 11:08 03/01/18 11:08 03/01/18 11:08 03/01/18 11:08 Internal Medicine: Result - Labs CBC & Chem 7: 02/28/18 07:03 02/28/18 07:03 - ABG Interpretation ABG results: ABG ABG pH 7.46 pH Units (7.32-7.45) H 02/27/18 04:26 ABG pCO2 39 mmHg (35-45) 02/27/18 04:26 ABG pO2 72 mmHg (85-104) L 02/27/18 04:26 ABG O2 Saturation 95 % (95-98) 02/27/18 04:26 PT/INR, D-dimer PT 13.5 Seconds (9.4-12.1) H 02/27/18 04:35 - Attending Attestation I examined this patient and my medical decision-making was reviewed with the Resident Physician Dr. Campbell. I agree with the documented findings, disposition and treatment plan as described except to the extent set forth below. Mr. Jerome is a 77 y/o M advanced COPD, Chronic hypoxic resp failure, Pulmonary fibrosis and Prostate cancer pt was admitted into our ICU from [facility] for acute on chronic hypoxic resp failure with COPD exacerbation. Pt was initially treated with BiPAP, Now [facility], he is currently on NC o2. Pt denied any CP. Still has moderate SOB and CREWS. Gen: A, A, O x3 Chest: diminished BS b/l, moderate wheezing Heart: S1S2+ a/p 1. Acute on chronic hypoxic resp failure 2. Acute COPD exacerbation 3. Acute Pneumonia - mostly bacterial - unspecified organism 4. Pulm HTN 5. Pulm fibrosis over all very prognosis Pt decide to go home under home hospice care will arrange for home hospice care in AM mean while continue current symptomatic supportive care.
[2018-03-01] MEDS ORDERED: *HR* LORazepam 0.5 MG TABLET PO PRN (15:15)
[2018-03-02] MEDS: Ipratropium/Albuterol Neb 3 ML IH SCH ×3 (04:17→11:41)
--- NOTE | 2018-03-02 09:02 | Electrocardiograph Report ---
[place] [id number] Test Date: 2018-02-27 Pat Name: Jake Jerome Department: 109 Room: [facility] Gender: M Clay Artisan: CORNELIO : 1940 Requested By: Eder Pal Order Number: [id number] Reading MD: Stanley Garcia Measurements Intervals [place] Rate: 88 P: 65 KS: 188 QRS: 8 QRSD: 94 T: 31 QT: 380 QTc: 425 Interpretive Statements SINUS RHYTHM Electronically Signed On 03-02-2018 9:00:45 EDT by Stanley Garcia
[2018-03-02] MEDS: Furosemide 20 MG/2 ML VIAL IVP SCH (09:50)
[2018-03-02] MEDS: predniSONE 20 MG TABLET PO SCH (09:50)
[2018-03-02] MEDS: *HR* Heparin 5,000 UNIT/ML VIAL SQ SCH (09:50)
[2018-03-02] MEDS: Levofloxacin 750 MG/150 ML 750 MG/150 ML BAG IVPB SCH (09:51)
--- NOTE | 2018-03-02 09:52 | Palliative Progress Note ---
Date of Encounter: 03/02/18 Time of Encounter: 09:00 - Assessment and plan (1) Dyspnea Current Visit: Yes Status: Acute Assessment and plan: Patient denies dyspnea during assessment. oxygen saturation 99% on 10 L NC. Ordered Roxanol SL PRN for discharge. Qualifiers: Dyspnea type: shortness of breath Qualified Code(s): R06.02 - Shortness of breath; R06.00 - Dyspnea, unspecified; R06.01 - Orthopnea (2) Weakness Current Visit: Yes Status: Acute Assessment and plan: Patient plans to return home with hospice. (3) Acute hypoxemic respiratory failure Current Visit: Yes Status: Acute Assessment and plan: Patient has decided to pursue [facility]. Reports Ativan helped him rest last night and no further shortness of breath. Ordered Ativan 0.5 mg Q4H PRN for increased anxiety related to dyspnea. 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 Patient to return home with [facility]. Code status to be changed to DNR CC. Spoke with Fransico at [facility], patient will need BSC and Oxygen, also requested electric wheelchair. Presented concern as patient's neighbor will be primary child care leader, as he has been; family reports that they will "cross bridge" when patient will need 24 hour care when get there. Plan to discharge home today with hospice. Patient will need transported by ambulance. Will fax prescriptions, Demographic sheet, H &P, and discharge note to [facility] prior to discharge. State form completed. (6) Headache Current Visit: Yes Status: Acute Qualifiers: Headache type: unspecified Headache chronicity pattern: unspecified pattern Intractability: not intractable Qualified Code(s): R51 - Headache - Time Spent With Patient Total time spent is greater than 50% in coordination of care (as documented) at patient's floor/unit and/or counseling patient: - Subjective Interval history: Patient resting in bed talking with daughter on the phone during arrival for assessment. Patient alert and oriented times 3. No complaints during assessment of pain, dyspnea, or anxiety. Patient reports plan to return home with [facility] and neighbor helping with daily care. Patient reported needing BSC and electric wheelchair at discharge; notified Fransico at [facility]. Patient reports took Ativan X1 dose last night and really helped him rest well. Patient is sitting up talking on the phone after finishing his breakfast, in pleasant spirits to return home to his cat. - Constitutional Vitals: Abnormal lab results WBC 13.7 K/mcL (4.3-11.1) H 02/28/18 07:03 Neutrophils # 12.4 K/mcL (1.6-8.9) H 02/28/18 07:03 PT 13.5 Seconds (9.4-12.1) H 02/27/18 04:35 ABG pH 7.46 pH Units (7.32-7.45) H 02/27/18 04:26 ABG pO2 72 mmHg (85-104) L 02/27/18 04:26 ABG Total CO2 28 mEq/L (20-26) H 02/27/18 04:26 Glucose 160 mg/dL (70-105) H 02/28/18 07:03 POC Glucose 116 mg/dL (70-99) H 02/27/18 03:19 Total Bilirubin 1.1 mg/dL (0.3-1.0) H 02/27/18 04:35 Direct Bilirubin 0.3 mg/dL (0.0-0.2) H 02/27/18 04:35 B-Natriuretic Peptide 131 pg/mL (Less than 100) H 02/27/18 07:53 Serum Total Protein 6.3 g/dL (6.4-8.9) L 02/27/18 04:35 Ur Specific [place] 1.008 (1.010-1.025) L 02/27/18 09:13 General appearance: Present: cooperative, no acute distress - Head Head exam: Present: atraumatic, normal inspection - Eye Eye exam: Present: EOMI, normal appearance Pupils: Present: normal accommodation, PERRL - Neck Neck exam: Present: full ROM, normal inspection - Respiratory Respiratory exam: Present: accessory muscle use, rhonchi, wheezes. Absent: respiratory distress, tachypnea - Cardiovascular Cardiovascular exam: Present: +S1, +S2 - GI/Abdominal GI/Abdominal exam: Present: normal bowel sounds, soft. Absent: tenderness - Rectal Rectal exam: Present: deferred - Extremities Exam Extremities exam: Present: pedal edema - Neurological Exam Neurological exam: Present: alert, oriented X3 - Psychiatric Psychiatric exam: Present: normal affect, normal mood. Absent: anxious Palliative Quality Palliative Quality: Screen for Code Status: Yes, Screen for Goals of Care: Yes, Screen for Pain: Yes, If Pain Regimen Started, Initiate Bowel Regimen: NA, Screen for Nausea/Vomitting: Yes Code Status: 02/27/18 03:46 Resuscitation Status: Active [RES] Routine Comment: Resuscitation Status: Full Code 02/27/18 07:45 CODE [Resuscitation Status: Active] [RES] Routine Comment: Resuscitation Status: [id number] - Labs CBC & Chem 7: 02/28/18 07:03 02/28/18 07:03 - ABG Interpretation ABG results: ABG ABG pH 7.46 pH Units (7.32-7.45) H 02/27/18 04:26 ABG pCO2 39 mmHg (35-45) 02/27/18 04:26 ABG pO2 72 mmHg (85-104) L 02/27/18 04:26 ABG O2 Saturation 95 % (95-98) 02/27/18 04:26 PT/INR, D-dimer PT 13.5 Seconds (9.4-12.1) H 02/27/18 04:35 Consult Discharge Plan - Plan Referrals: NONE,PCP [Primary Care Provider] - Prescriptions: LORazepam [Ativan] 0.5 mg PO Q6HR PRN 7 Days #30 tablet PRN Reason: Anxiety Amoxicillin/Clavulanate [Augmentin] 875 mg PO BIDWM #14 tablet Furosemide [Lasix] 40 mg PO DAILY #30 tab MORPHINE SUL Oral CONC [Roxanol Oral Conc] 5 - 10 mg PO Q2H PRN 7 Days #30 ml PRN Reason: pain/shortness of breath predniSONE [PredniSONE] See Taper PO DAILY #25 tablet
--- NOTE | 2018-03-02 10:17 | Discharge Summary ---
<Tony Thakur - Last Filed: 03/02/18 11:54> - NOTES TO OUTPATIENT PROVIDER Notes to Outpatient Provider: Plan to discharge home today with hospice. Patient will need BSC and also requested electric wheelchair. Orders not resulted at time of discharge: Pending orders 02/27/18 04:35 Culture,Blood [BC] Stat Date of Encounter: 03/02/18 Time of Encounter: 10:15 - Discharge Diagnosis (1) Sepsis Priority: Primary Status: Resolved Assessment and Plan: Secondary to pneumonia. Resolved at this time. Qualifiers: Sepsis type: sepsis due to unspecified organism Qualified Code(s): A41.9 - Sepsis, unspecified organism (2) Pneumonia Priority: Primary Status: Acute Assessment and Plan: Cultures negative thus far. Continue Augmentin for a total of 10 days. Qualifiers: Pneumonia type: due to unspecified organism Laterality: bilateral Lung location: unspecified part of lung Qualified Code(s): J18.9 - Pneumonia, unspecified organism (3) Acute and chronic respiratory failure with hypoxia Priority: Primary Status: Acute Assessment and Plan: Secondary to COPD exacerbation setting of pulmonary fibrosis with possible pulmonary edema as well. Not requiring BiPAP any longer but is requiring oxygen via nasal cannula at 10 L. Continue supplementation to keep oxygen saturation greater than 80%. 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 Discussed with patient this morning and he spoke with his family and will likely pursue hospice. Plan to set up home hospice today. Appreciate Palliative care team assistance (5) Pulmonary hypertension Priority: Secondary Status: Chronic Assessment and Plan: Likely secondary to chronic lung disease. Continue Lasix and oxygen supplementation. (6) COPD with acute exacerbation Priority: Primary Status: Acute Assessment and Plan: Improving. Likely secondary to pneumonia and underlying pulmonary fibrosis. Continue prednisone taper and antibiotics as well as scheduled bronchodilators. Hospital course: Mr. Jerome is a 77 year old male with a PMH of HTN, BPH, prostate cancer, end- stage respiratory failure secondary to COPD and suspected the concomitant pulmonary fibrosis who was transferred to [facility] ICU from [facility] 02/26/18 with profound dyspnea, cough, fevers, chillls, and night sweats. He was noted to be severely hypoxemic in their emergency department and was placed on BiPAP with high flow oxygen bleed for ventilation support. He was kept on BiPAP overnight and treated for pneumonia with empiric broad-spectrum antimicrobials. Pulmonary was consulted for further evaluation of the patient. Initial chest x-ray revealed COPD, cardiomegaly, and interstitial opacities but clinically the picture was concerning for acute pneumonia. His blood cultures showed no growth to date and urine Legionella and strep antigens were negative. ABG revealed no evidence of worsening hypercarbic respiratory failure. Patient has severe hypoxemia but acceptable oxygenation on noninvasive ventilation with high flow oxygen liter bleed. Palliative care was consulted regarding goals of care. Patient to return home with [facility]. Code status to be changed to DNR CC. Patient instructed to complete 10 day course of antibiotics, Prednisone taper, Lasix PO, Ativan, and Morphine. Discharge discussed with: patient, nurse, social work, case management - Time Spent with Patient Total time spent providing and/or coordinating discharge services: - Discharge Medications Prescriptions: LORazepam [Ativan] 0.5 mg PO Q6HR PRN 7 Days #30 tablet PRN Reason: Anxiety Amoxicillin/Clavulanate [Augmentin] 875 mg PO BIDWM #14 tablet Furosemide [Lasix] 40 mg PO DAILY #30 tab MORPHINE SUL Oral CONC [Roxanol Oral Conc] 5 - 10 mg PO Q2H PRN 7 Days #30 ml PRN Reason: pain/shortness of breath predniSONE [PredniSONE] See Taper PO DAILY #25 tablet Home Medications: Alfuzosin HCl [Uroxatral] 10 mg PO DAILY 02/27/18 [History] Docusate Sodium [Dok] 100 mg PO DAILY 02/27/18 [History] Doxazosin Mesylate [Cardura] 8 mg PO DAILY 02/27/18 [History] Fluticasone/Salmeterol [Advair 500-50 Diskus] 1 puff IH BID 02/27/18 [History] Ipratropium/Albuterol Neb [Duoneb] 3 ml IH Q6HR PRN 02/27/18 [History] Montelukast [Singulair] 10 mg PO DAILY 02/27/18 [History] Multivit-Min/FA/Lycopen/Lutein [A Thru Z Select Men 50+ Tablet] 1 tab PO DAILY 02/27/18 [History] Oxybutynin Chloride [Ditropan Xl] 5 mg PO DAILY 02/27/18 [History] Oxybutynin [Ditropan] 5 mg PO BID 02/27/18 [History] Potassium Gluconate [Potassium] 99 mg PO DAILY 02/27/18 [History] Sertraline [Zoloft] 100 mg PO DAILY 02/27/18 [History] Amoxicillin/Clavulanate [Augmentin] 875 mg PO BIDWM #14 tablet 03/02/18 [Rx] Furosemide [Lasix] 40 mg PO DAILY #30 tab 03/02/18 [Rx] LORazepam [Ativan] 0.5 mg PO Q6HR PRN 7 Days #30 tablet 03/02/18 [Rx] MORPHINE SUL Oral CONC [Roxanol Oral Conc] 5 - 10 mg PO Q2H PRN 7 Days #30 ml [Rx] predniSONE [PredniSONE] See Taper PO DAILY #25 tablet 03/02/18 [Rx] Allergies/Adverse Reactions: 3 Allergy/AdvReac Type Severity Reaction Status Date / Time No Known Allergies Allergy Verified 02/27/18 03:51 Date of admission: 02/27/18 03:46 Primary care physician: PCP NONE Consults: 02/27/18 03:52 Consult to Wire Stitcher Operator [CONS] Routine Reason for SW Consult: lives home alone, good canidate for home health if able 02/27/18 04:05 Consult to Pulmonology [CONS] Routine Consulting Provider: Pulm Crit [facility] Sleep [facility] Reason for Consult: ICU management Call Completed: No 02/27/18 07:09 Consult to Palliative Care [CONS] Routine Comment: Consulting Provider: Palliative Care [place] Reason for Consult: goals of care Call Completed: Yes Discharging clinician: Tony Thakur Anticipated date of discharge: 03/02/18 - Constitutional Vitals: Temp Pulse Resp BP Pulse Ox 97.8 F 79 14 152/97 98 03/02/18 06:43 03/02/18 06:43 03/02/18 07:42 03/02/18 06:43 03/02/18 07:42 General appearance: Present: cooperative, mild distress, A&O X 3, pleasant, answers questions appropriately - Head Head exam: Present: atraumatic, normocephalic - Eye Eye exam: Present: PERRL, conjuntiva pink, sclera anicteric Pupils: Present: PERRL - ENT ENT exam: Present: mucous membranes moist, normal oropharynx - Neck Neck exam general surgery: Present: supple, trachea midline. Absent: lymphadenopathy - Respiratory Respiratory exam: Present: decreased breath sounds, rales (bibasilar crackles). Absent: accessory muscle use, respiratory distress, rhonchi, wheezes - Cardiovascular Cardiovascular exam: Present: RRR, +S1, +S2. Absent: diastolic murmur, gallop, rubs, systolic murmur - GI/Abdominal GI/Abdominal exam: Present: normal bowel sounds, soft, no peritoneal signs. Absent: distended, tenderness - Extremities Exam Extremities exam: Present: warm, radial pulses palpable and symmetrical. Absent : calf tenderness, cyanotic, pedal edema - Back Exam Back exam: Present: normal inspection. Absent: paraspinal tenderness, tenderness - Neurological Exam Neurological exam: Present: CN II-XII intact, oriented X3, no focal deficits. Absent: pronater drift, facial droop, speech deficit - Psychiatric Psychiatric exam: Present: normal affect, normal mood - Skin Skin exam: Present: dry, intact, normal color, warm - Patient Status Disposition: Hospice - Home Condition: Critical Functional capacity at discharge: wheelchair bound Overall status at discharge: patient is not back to baseline - Discharge Instructions Follow Up With: NONE,PCP [Primary Care Provider] - - Diet and Activity Activity: resume usual activities as tolerated Diet: advance to your usual diet <Celestina Lo - Last Filed: 03/02/18 12:11> Orders not resulted at time of discharge: Pending orders 02/27/18 04:35 Culture,Blood [BC] Stat Date of Encounter: 03/02/18 - Discharge Diagnosis (1) Sepsis Status: Resolved Qualifiers: Sepsis type: sepsis due to unspecified organism Qualified Code(s): A41.9 - Sepsis, unspecified organism (2) Acute and chronic respiratory failure with hypoxia Status: Acute (3) Pulmonary hypertension Status: Chronic (4) Pneumonia Status: Acute Qualifiers: Pneumonia type: due to unspecified organism Laterality: bilateral Lung location: unspecified part of lung Qualified Code(s): J18.9 - Pneumonia, unspecified organism (5) Pulmonary fibrosis Status: Chronic (6) COPD with acute exacerbation Status: Acute Hospital course: Mr. Jerome is a 77 year old male - Time Spent with Patient Total time spent providing and/or coordinating discharge services: Date of admission: 02/27/18 03:46 Primary care physician: PCP NONE Consults: 02/27/18 03:52 Consult to Wire Stitcher Operator [CONS] Routine Reason for SW Consult: lives home alone, good canidate for home health if able 02/27/18 04:05 Consult to Pulmonology [CONS] Routine Consulting Provider: Pulm Crit [facility] [place] Reason for Consult: ICU management Call Completed: No 02/27/18 07:09 Consult to Palliative Care [CONS] Routine Comment: Consulting Provider: Palliative Care [facility] Reason for Consult: goals of care Call Completed: Yes - Constitutional Vitals: Temp Pulse Resp BP Pulse Ox 97.7 F 102 18 119/75 94 03/02/18 10:34 03/02/18 10:34 03/02/18 10:34 03/02/18 10:34 03/02/18 10:34 - Attending Attestation I examined this patient and my medical decision-making was reviewed with the Resident Physician Dr. Thakur. I agree with the documented findings, disposition and treatment plan as described except to the extent set forth below. Mr. Jerome is a 77 y/o M advanced COPD, Chronic hypoxic resp failure, Pulmonary fibrosis and Prostate cancer pt was admitted into our ICU from [facility] for acute on chronic hypoxic resp failure with COPD exacerbation. Pt was initially treated with BiPAP, Now transferred to [facility], he is currently on NC O2 @ 10 lit . Pt denied any CP. Still has moderate SOB and CREWS. Over all this is his baseline. wanted to go home today under hospice care Gen: A, A, O x3 Chest: diminished BS b/l, moderate wheezing Heart: S1S2+ a/p 1. Acute on chronic hypoxic resp failure 2. Acute COPD exacerbation 3. Acute Pneumonia - mostly bacterial - unspecified organism 4. Pulm HTN 5. Pulm fibrosis continue current symptomatic supportive care.
[2018-03-02 10:38] VITALS: BP 119/75
--- NOTE | 2018-03-02 11:53 | Physician Discharge Referral ---
Home Health/Hosp Referral Info Transfer to: Hospice Attending Provider: Wally Provider in Charge Post Discharge: Center Consultant - Diagnosis (1) Sepsis Priority: Primary Status: Resolved (2) Pneumonia Priority: Primary Status: Acute (3) Acute and chronic respiratory failure with hypoxia Priority: Primary Status: Acute (4) COPD with acute exacerbation Priority: Primary Status: Acute (5) Pulmonary fibrosis Priority: Secondary Status: Chronic (6) Pulmonary hypertension Priority: Secondary Status: Chronic - Respiratory Orders Oxygen / L per min (10) Smoking Cessation: Smoking cessation has been advised. For more information, call the [place] Tobacco Quit Line at 7-845-ISVB-NOW. - Diet/Nutrition Diet/Nutrition Orders: Regular - Activity Activity Orders: Chair - Services Needed Following services are medically necessary services: Nursing, Home Health Aide, Physical Therapy, Occupational Therapy, Med Social Work - Transfer Medications Prescriptions: LORazepam [Ativan] 0.5 mg PO Q6HR PRN 7 Days #30 tablet PRN Reason: Anxiety Amoxicillin/Clavulanate [Augmentin] 875 mg PO BIDWM #14 tablet Furosemide [Lasix] 40 mg PO DAILY #30 tab MORPHINE SUL Oral CONC [Roxanol Oral Conc] 5 - 10 mg PO Q2H PRN 7 Days #30 ml PRN Reason: pain/shortness of breath predniSONE [PredniSONE] See Taper PO DAILY #25 tablet Home Medications: Alfuzosin HCl [Uroxatral] 10 mg PO DAILY 02/27/18 [History] Docusate Sodium [Dok] 100 mg PO DAILY 02/27/18 [History] Doxazosin Mesylate [Cardura] 8 mg PO DAILY 02/27/18 [History] Fluticasone/Salmeterol [Advair 500-50 Diskus] 1 puff IH BID 02/27/18 [History] Ipratropium/Albuterol Neb [Duoneb] 3 ml IH Q6HR PRN 02/27/18 [History] Montelukast [Singulair] 10 mg PO DAILY 02/27/18 [History] Multivit-Min/FA/Lycopen/Lutein [A Thru Z Select Men 50+ Tablet] 1 tab PO DAILY 02/27/18 [History] Oxybutynin Chloride [Ditropan Xl] 5 mg PO DAILY 02/27/18 [History] Oxybutynin [Ditropan] 5 mg PO BID 02/27/18 [History] Potassium Gluconate [Potassium] 99 mg PO DAILY 02/27/18 [History] Sertraline [Zoloft] 100 mg PO DAILY 02/27/18 [History] Amoxicillin/Clavulanate [Augmentin] 875 mg PO BIDWM #14 tablet 03/02/18 [Rx] Furosemide [Lasix] 40 mg PO DAILY #30 tab 03/02/18 [Rx] LORazepam [Ativan] 0.5 mg PO Q6HR PRN 7 Days #30 tablet 03/02/18 [Rx] MORPHINE SUL Oral CONC [Roxanol Oral Conc] 5 - 10 mg PO Q2H PRN 7 Days #30 ml [Rx] predniSONE [PredniSONE] See Taper PO DAILY #25 tablet 03/02/18 [Rx] Allergies/Adverse Reactions: 3 Allergy/AdvReac Type Severity Reaction Status Date / Time No Known Allergies Allergy Verified 02/27/18 03:51 Certification: Further, I certify that my clinical findings support that this patient is homebound (i.e. absences from home require considerable and taxing effort and are for medical reasons or moravian services or infrequently or short duration when for other reasons) because: Homebound Reason: Patient requires assistance of a person or device to safely leave home, Absences from home are contraindicated except to recieve medical care, Leaving home requires considerable and taxing effort due to condition, Severity of cardiac or pulmonary status limits activity tolerance Attestation: My signature below is to certify that this patient is under my care and that I, or nurse practitioner, or a physician's permit review assistant working with me, has a face-to -face encounter with this patient.
== END 2018-03-02 12:46 | disposition hospice, home (50) | DRG 871 ==
LOC: ICNU → 3ANU 02-28 14:36
PROVIDERS: ADMIT Internal Medicine; ATTEND Internal Medicine